=== PATIENT | female | born 1980 | race African-American/Black ===

== ENCOUNTER 2017-02-25 17:57 | Emergency (ER) | payer OTHER ==
--- NOTE | 2017-02-25 17:59 | PDOC ---
History of Present Illness - History of Present Illness Initial Comments: 02/25/17 18:04 The patient is a 36 year old female, with no significant past medical history, who presents to the emergency department with upper abdominal pain since this morning. The patient reports going out last night and having two alcoholic beverages. The patient states she rarely drinks and felt very drunk after having the two drinks. She states she ate pancakes with rodríguez before going out last night and denies eating since secondary to her abdominal pain. Secondarily , she states she is currently on her menstrual cycle. She denies chest pain, shortness of breath, headache and dizziness. She denies fever, chills, nausea, vomit, diarrhea and constipation. She denies dysuria, frequency, urgency and hematuria. Allergies: NKDA Past surgical history: cholecystectomy (5 years ago) <Ruby Vang - Last Filed: 02/25/17 20:19> <Fede Marquez - Last Filed: 02/26/17 07:18> - General Chief Complaint: Pain Stated Complaint: ABDOMINAL PAIN AND VOMITING TODAY Time Seen by Provider: 02/25/17 17:59 Past History <Ruby Vang - Last Filed: 02/25/17 20:19> - Surgical History Cholecystectomy: Yes - Immunization History Immunization Up to Date: Yes - Suicide/Smoking/Psychosocial Hx Smoking Status: No Smoking History: Never smoked Number of Cigarettes Smoked Daily: 0 Hx Alcohol Use: No Drug/Substance Use Hx: No Substance Use Type: None <Fede Marquez - Last Filed: 02/26/17 07:18> - Past Medical History Allergies/Adverse Reactions: Allergies Allergy/AdvReac Type Severity Reaction Status Date / Time No Known Allergies Allergy Verified 02/25/17 17:59 Home Medications: Ambulatory Orders Bupropion HCl [Wellbutrin -] 0 mg PO BID 04/27/15 Paroxetine HCl [Paxil -] 20 mg PO DAILY 04/27/15 Review of Systems - Review of Systems Able to Perform ROS?: Yes Comments:: 02/25/17 18:05 GENERAL/CONSTITUTIONAL: No fever or chills. No weakness. HEAD, EYES, EARS, NOSE AND THROAT: No change in vision. No ear pain or discharge. No sore throat. CARDIOVASCULAR: No chest pain or shortness of breath. RESPIRATORY: No cough, wheezing, or hemoptysis. GASTROINTESTINAL: (+) upper abdominal pain. No nausea, vomiting, diarrhea or constipation. GENITOURINARY: No dysuria, frequency, or change in urination. MUSCULOSKELETAL: No joint or muscle swelling or pain. No neck or back pain. SKIN: No rash NEUROLOGIC: No headache, vertigo, loss of consciousness, or change in strength/ sensation. ENDOCRINE: No increased thirst. No abnormal weight change. HEMATOLOGIC/LYMPHATIC: No anemia, easy bleeding, or history of blood clots. ALLERGIC/IMMUNOLOGIC: No hives or skin allergy. <Ruby Vang - Last Filed: 02/25/17 20:19> *Physical Exam - Vital Signs Last Vital Signs Temp Pulse Resp BP Pulse Ox 98.4 F 102 H 16 143/91 99 02/25/17 17:58 02/25/17 17:58 02/25/17 17:58 02/25/17 17:58 02/25/17 17:58 - Physical Exam Comments: 02/25/17 18:05 GENERAL: Awake, alert, and fully oriented, in no acute distress HEAD: No signs of trauma EYES: PERRLA, EOMI, sclera anicteric, conjunctiva clear ENT: Auricles normal inspection, hearing grossly normal, nares patent, oropharynx clear without exudates. Moist mucosa NECK: Normal ROM, supple, no lymphadenopathy, JVD, or masses LUNGS: Breath sounds equal, clear to auscultation bilaterally. No wheezes, and no crackles HEART: Regular rate and rhythm, normal S1 and S2, no murmurs, rubs or gallops ABDOMEN: Soft, nontender, normoactive bowel sounds. No guarding, no rebound. No masses EXTREMITIES: Normal range of motion, no edema. No clubbing or cyanosis. No cords, erythema, or tenderness NEUROLOGICAL: Cranial nerves II through XII grossly intact. Normal speech, normal gait SKIN: Warm, Dry, normal turgor, no rashes or lesions noted. <Ruby Vang - Last Filed: 02/25/17 20:19> ED Treatment Course - LABORATORY CBC & Chemistry Diagram: 02/25/17 18:10 02/25/17 18:10 <Ruby Vang - Last Filed: 02/25/17 20:19> - LABORATORY CBC & Chemistry Diagram: 02/25/17 18:10 02/25/17 18:10 <Fede Marquez - Last Filed: 02/26/17 07:18> *DC/Admit/Observation/Transfer - Attestations Scribe Attestion: 02/25/17 18:05 Documentation prepared by Ruby Vang, acting as biomedical engineering supervisor for Fede Marquez DO <Ruby Vang - Last Filed: 02/25/17 20:19> - Attestations Physician Attestion: 02/25/17 17:59 I, Dr. Fede Marquez, attest that this document has been prepared under my direction and personally reviewed by me in its entirety. I further attest, that it accurately reflects all work, treatment, procedures and medical decision -making performed by me. <Fede Marquez - Last Filed: 02/26/17 07:18> Diagnosis at time of Disposition: Abdominal pain Qualifiers: Abdominal location: upper abdomen, unspecified Qualified Code(s): R10.10 - Upper abdominal pain, unspecified - Discharge Dispostion Disposition: HOME Condition at time of disposition: Stable - Patient Instructions Additional Instructions: Return to the emergency department immediately with ANY new, persistent or worsening symptoms. Continue any medications as previously prescribed by your physician. You should follow up with your primary doctor as soon as possible regarding today's emergency department visit. . Please make sure your doctor reviews the results of your emergency evaluation. Thank you for coming to the Emergency Department today for your care. It was a pleasure to see you today. Please note that your evaluation is INCOMPLETE until you follow-up with your doctor.
[2017-02-25] MEDS ORDERED: SODIUM CHLORIDE 2,000 ML IV STA (18:00)
[2017-02-25] MEDS ORDERED: KETOROLAC TROMETHAMINE 30 MG/1 ML VIAL IVPUSH ONE (18:00)
[2017-02-25] MEDS ORDERED: ONDANSETRON 4 MG/2 ML VIAL IVPB ONE (18:00)
[2017-02-25] MEDS ORDERED: morphine CARPU-JECT 4 MG/1 ML DISP.SYRIN IVPUSH ONE (18:00)
[2017-02-25] MEDS ORDERED: FAMOTIDINE 20 MG/50 ML IVPB 50 ML IVPB ONE ×2 (18:00→18:18)
[2017-02-25 18:05] VITALS: TEMP 98.4; BMI 20.9
[2017-02-25] MEDS ORDERED: ONDANSETRON 4 MG/2 ML VIAL ONE (18:19)
[2017-02-25] MEDS ORDERED: morphine SULFATE 4 MG/ML VIAL ONE (18:19)
[2017-02-25 18:35] LABS: BASOPHIL 1.7 % (0-2.0); MCH 30.5 pg (25.7-33.7); MCHC 33.3 g/dl (32.0-36.0); MEAN CELL VOLUME 91.6 fl (80-96); MEAN PLT VOLUME 8.8 fl (7.5-11.1); NEUTROPHILS 84.1 % (42.8-82.8); PLATELET COUNT 306 K/MM3 (134-434); RDW 13.6 % (11.6-15.6); WHITE BLOOD COUNT 12.9 K/mm3 (4.0-10.8)
[2017-02-25 18:54] LABS: INR 1.4 (0.82-1.09); PROTHROMBIN TIME (PATIENT) 15.6 SEC (10.2-13.0)
[2017-02-25 18:59] LABS: PH,URINE >= 9.0 (4.5-8); URINE APPEARANCE Clear; URINE BILIRUBIN Negative (NEGATIVE); URINE BLOOD 1+ (NEGATIVE); URINE COLOR YELLOW; URINE GLUCOSE (UA) Negative (NEGATIVE); URINE KETONE 1+ (NEGATIVE); URINE LEUK ESTERASE Negative (NEGATIVE); URINE NITRITE Negative (NEGATIVE); URINE PROTEIN 1+ (NEGATIVE); URINE UROBILINOGEN 0.2 (0.2-1.0)
[2017-02-25 19:01] LABS: ALBUMIN 4.5 g/dl (3.5-5.0); ALK PHOS 50 U/L (32-92); AMYLASE 50 U/L (25-125); ANION GAP 10 (8-16); BILIRUBIN,TOTAL 0.8 mg/dl (0.2-1.0); CALCIUM 9.2 mg/dl (8.4-10.2); CO2 24 mmol/L (22-28); CREATININE 0.7 mg/dl (0.6-1.3); GLUCOSE,RANDOM 113 mg/dl (74-106); SGOT/AST 25 U/L (10-42); SGPT/ALT 12 U/L (10-40); TOT PROT 7.9 g/dl (6.4-8.3)
[2017-02-25] MEDS ORDERED: KETOROLAC TROMETHAMINE 30 MG/1 ML VIAL ONE (19:01)
[2017-02-25 19:13] VITALS: BP 135/72; PULSE 58
[2017-02-25 19:51] LABS: URINE MUCUS 1+
--- NOTE | 2017-02-25 20:20 | PDOC ---
*Physical Exam - Vital Signs Last Vital Signs Temp Pulse Resp BP Pulse Ox 98.4 F 58 L 16 135/72 100 02/25/17 17:58 02/25/17 19:06 02/25/17 19:06 02/25/17 19:06 02/25/17 19:06 <Ruby Vang - Last Filed: 02/25/17 20:21> - Vital Signs Last Vital Signs Temp Pulse Resp BP Pulse Ox 98.4 F 58 L 16 135/72 100 02/25/17 17:58 02/25/17 19:06 02/25/17 19:06 02/25/17 19:06 02/25/17 19:06 <Sophia Jackson I - Last Filed: 02/25/17 20:55> ED Treatment Course - LABORATORY CBC & Chemistry Diagram: 02/25/17 18:10 02/25/17 18:10 - ADDITIONAL ORDERS Additional order review: Laboratory Results 02/25/17 02/25/17 02/25/17 18:40 18:10 18:10 PT with INR INR Sodium Potassium Chloride Carbon Dioxide Anion Gap BUN Creatinine Creat Clearance w eGFR Random Glucose Calcium Total Bilirubin Direct Bilirubin AST ALT Alkaline Phosphatase Total Protein Albumin Total Amylase Lipase Serum , Qual Negative Urine Color Yellow Urine Appearance Clear Urine pH >= 9.0 H Ur Specific [place] 1.015 Urine Protein 1+ H Urine Glucose (UA) Negative Urine Ketones 1+ H Urine Blood 1+ H Urine Nitrite Negative Urine Bilirubin Negative Urine Urobilinogen 0.2 Ur Leukocyte Esterase Negative Urine RBC 4-6 Urine WBC 3-5 Ur Epithelial Cells 3-5 Urine Mucus 1+ Blood Type Cancelled Antibody Screen Cancelled Spec Expiration Date Cancelled 02/25/17 02/25/17 18:10 18:10 PT with INR 15.6 H INR 1.40 H Sodium 142 Potassium 3.4 L Chloride 108 H Carbon Dioxide 24 Anion Gap 10 BUN 9 Creatinine 0.7 Creat Clearance w eGFR > 60 Random Glucose 113 H Calcium 9.2 Total Bilirubin 0.8 Direct Bilirubin Y AST 25 ALT 12 Alkaline Phosphatase 50 Total Protein 7.9 Albumin 4.5 Total Amylase 50 Lipase < 20 L Serum , Qual Urine Color Urine Appearance Urine pH Ur Specific [place] Urine Protein Urine Glucose (UA) Urine Ketones Urine Blood Urine Nitrite Urine Bilirubin Urine Urobilinogen Ur Leukocyte Esterase Urine RBC Urine WBC Ur Epithelial Cells Urine Mucus Blood Type Antibody Screen Spec Expiration Date 02/25/17 18:10 RBC 4.09 MCV 91.6 MCHC 33.3 RDW 13.6 MPV 8.8 Neutrophils % 84.1 H Lymphocytes % 6.8 L Monocytes % 7.4 Eosinophils % 0.0 Basophils % 1.7 - RADIOLOGY Radiograph Interpretation: EXAM: CT abdomen and pelvis with contrast FINDINGS: Visualized lung bases are unremarkable. No pleural effusions. Cholecystectomy. *Nonspecific mild periportal edema. Correlate clinically for possible hepatitis. *Pancreas appears normal without inflammatory changes or surrounding abscess. Adrenal glands and spleen are unremarkable. No renal or urinary calculi. No AAA. *Most of the colon is decompressed. Appearance of diffuse mucosal thickening throughout colon is more likely due to the underdistention, though cannot exclude colitis. No evidence for diverticulitis, appendicitis, small bowel obstruction, or free air. Trace pelvic fluid. Gorge Hall MD 02/25/2017 20:12 EST - Medications Given in the ED: ED Medications Discontinued Medications Generic Name Dose Route Start Last Admin Trade Name Freq PRN Reason Stop Dose Admin Famotidine/Sodium Chloride 50 mls @ 100 mls/hr 02/25/17 18:00 02/25/17 18:29 Pepcid 20 Mg Premixed Ivpb - IVPB 02/25/17 18:29 100 mls/hr ONCE ONE Administration Sodium Chloride 2,000 mls @ 1,000 mls/hr 02/25/17 18:00 02/25/17 18:28 Normal Saline - IV 02/25/17 19:59 1,000 mls/hr ASDIR STA Administration Ketorolac Tromethamine 30 mg 02/25/17 18:00 02/25/17 19:06 Toradol Injection - IVPUSH 02/25/17 18:01 30 mg ONCE ONE Administration Morphine Sulfate 4 mg 02/25/17 18:00 02/25/17 18:30 Morphine Injection - IVPUSH 02/25/17 18:01 4 mg ONCE ONE Administration Ondansetron HCl 8 mg 02/25/17 18:00 02/25/17 18:30 Zofran Injection IVPB 02/25/17 18:01 8 mg ONCE ONE Administration <Ruby Vang - Last Filed: 02/25/17 20:21> - LABORATORY CBC & Chemistry Diagram: 02/25/17 18:10 02/25/17 18:10 - ADDITIONAL ORDERS Additional order review: Laboratory Results 02/25/17 02/25/17 02/25/17 18:40 18:10 18:10 PT with INR INR Sodium Potassium Chloride Carbon Dioxide Anion Gap BUN Creatinine Creat Clearance w eGFR Random Glucose Calcium Total Bilirubin Direct Bilirubin AST ALT Alkaline Phosphatase Total Protein Albumin Total Amylase Lipase Serum , Qual Negative Urine Color Yellow Urine Appearance Clear Urine pH >= 9.0 H Ur Specific [place] 1.015 Urine Protein 1+ H Urine Glucose (UA) Negative Urine Ketones 1+ H Urine Blood 1+ H Urine Nitrite Negative Urine Bilirubin Negative Urine Urobilinogen 0.2 Ur Leukocyte Esterase Negative Urine RBC 4-6 Urine WBC 3-5 Ur Epithelial Cells 3-5 Urine Mucus 1+ Blood Type Cancelled Antibody Screen Cancelled Spec Expiration Date Cancelled 02/25/17 02/25/17 18:10 18:10 PT with INR 15.6 H INR 1.40 H Sodium 142 Potassium 3.4 L Chloride 108 H Carbon Dioxide 24 Anion Gap 10 BUN 9 Creatinine 0.7 Creat Clearance w eGFR > 60 Random Glucose 113 H Calcium 9.2 Total Bilirubin 0.8 Direct Bilirubin Y AST 25 ALT 12 Alkaline Phosphatase 50 Total Protein 7.9 Albumin 4.5 Total Amylase 50 Lipase < 20 L Serum , Qual Urine Color Urine Appearance Urine pH Ur Specific [place] Urine Protein Urine Glucose (UA) Urine Ketones Urine Blood Urine Nitrite Urine Bilirubin Urine Urobilinogen Ur Leukocyte Esterase Urine RBC Urine WBC Ur Epithelial Cells Urine Mucus Blood Type Antibody Screen Spec Expiration Date 02/25/17 18:10 RBC 4.09 MCV 91.6 MCHC 33.3 RDW 13.6 MPV 8.8 Neutrophils % 84.1 H Lymphocytes % 6.8 L Monocytes % 7.4 Eosinophils % 0.0 Basophils % 1.7 - Medications Given in the ED: ED Medications Discontinued Medications Generic Name Dose Route Start Last Admin Trade Name Freq PRN Reason Stop Dose Admin Famotidine/Sodium Chloride 50 mls @ 100 mls/hr 02/25/17 18:00 02/25/17 18:29 Pepcid 20 Mg Premixed Ivpb - IVPB 02/25/17 18:29 100 mls/hr ONCE ONE Administration Sodium Chloride 2,000 mls @ 1,000 mls/hr 02/25/17 18:00 02/25/17 18:28 Normal Saline - IV 02/25/17 19:59 1,000 mls/hr ASDIR STA Administration Ketorolac Tromethamine 30 mg 02/25/17 18:00 02/25/17 19:06 Toradol Injection - IVPUSH 02/25/17 18:01 30 mg ONCE ONE Administration Morphine Sulfate 4 mg 02/25/17 18:00 02/25/17 18:30 Morphine Injection - IVPUSH 02/25/17 18:01 4 mg ONCE ONE Administration Ondansetron HCl 8 mg 02/25/17 18:00 02/25/17 18:30 Zofran Injection IVPB 02/25/17 18:01 8 mg ONCE ONE Administration <Sophia Jackson I - Last Filed: 02/25/17 20:55> Progress Note - Progress Note Progress Note: Care of this patient was transferred to [place] from Dr. Garnett at 1900 hrs. Patient is a 36-year-old female with history of pancreatitis in the past who was drinking this past weekend and comes in complaining of upper abdominal pain. Patient has a workup pending Including labs and a CAT scan. 20:30 Patient's CAT scan was unremarkable with the exception of some nonspecific mild andrew-portal edema. Otherwise some evidence of some mild colitis. Patient had a mildly elevated white count of 12.8 but otherwise no acute pancreatitis, appendicitis or acute abdominal pathology. Patient's symptoms are most likely secondary to a viral etiology.. Patient was told to follow-up with her primary care next week if symptoms have not improved and she was discharged home. <Sophia Jackson I - Last Filed: 02/25/17 20:55> *DC/Admit/Observation/Transfer - Attestations Scribe Attestion: 02/25/17 20:21 Documentation prepared by Ruby Vang, acting as certified medical records coder for Sophia Jackson MD <Ruby Vang - Last Filed: 02/25/17 20:21> <Sophia Jackson I - Last Filed: 02/25/17 20:55> Diagnosis at time of Disposition: Abdominal pain Qualifiers: Abdominal location: upper abdomen, unspecified Qualified Code(s): R10.10 - Upper abdominal pain, unspecified - Discharge Dispostion Disposition: HOME Condition at time of disposition: Stable - Patient Instructions Additional Instructions: Return to the emergency department immediately with ANY new, persistent or worsening symptoms. Continue any medications as previously prescribed by your physician. You should follow up with your primary doctor as soon as possible regarding today's emergency department visit. . Please make sure your doctor reviews the results of your emergency evaluation. Thank you for coming to the Emergency Department today for your care. It was a pleasure to see you today. Please note that your evaluation is INCOMPLETE until you follow-up with your doctor.
== END 2017-02-25 20:54 | disposition home or self-care (01) ==
LOC: FER 17:57
PROC: 3E033GC Introduction of Other Therapeutic Substance into Peripheral Vein, Percutaneous Approach (ICD-10-PCS; principal; 2017-02-25)
PROC: 3E0333Z Introduction of Anti-inflammatory into Peripheral Vein, Percutaneous Approach (ICD-10-PCS; 2017-02-25)
PROC: 3E033NZ Introduction of Analgesics, Hypnotics, Sedatives into Peripheral Vein, Percutaneous Approach (ICD-10-PCS; 2017-02-25)
PROC: 3E0337Z Introduction of Electrolytic and Water Balance Substance into Peripheral Vein, Percutaneous Approach (ICD-10-PCS; 2017-02-25)
DX: R10.10 Upper abdominal pain, unspecified (principal)
CPT/HCPCS: 36415; 74177-TC; 80053; 80076; 81003; 81015; 82150; 83690; 84703; 85025; 85610; 86850; 86900; 86901; 87086; 99283-25

== ENCOUNTER 2020-12-19 04:39 | Emergency (ER) | payer OTHER ==
[2020-12-19 05:08] VITALS: TEMP 98.8; BMI 20.7
[2020-12-19 06:20] LABS: BASO % 0.6 % (0-2.0); EOS % 0.1 % (0-4.5); HEMATOCRIT 35.4 % (32.4-45.2); HEMOGLOBIN 12.1 GM/dL (10.7-15.3); MCH 31.4 pg (25.7-33.7); MCHC 34.3 g/dl (32.0-36.0); MEAN CELL VOLUME 91.7 fl (80-96); MEAN PLT VOLUME 7.9 fl (7.5-11.1); MONO % 11.4 % (3.8-10.2); NEUT % 78.9 % (42.8-82.8); PLATELET COUNT 221 10^3/uL (134-434); RBC 3.86 M/mm3 (3.60-5.2); RDW 14.2 % (11.6-15.6); WHITE BLOOD COUNT 11.8 K/mm3 (4.0-10.0)
[2020-12-19 06:27] LABS: CALCIUM 8.8 mg/dL (8.5-10.1)
[2020-12-19 06:28] LABS: ALBUMIN 3.7 g/dl (3.4-5.0); BLOOD UREA NITROGEN 5.7 mg/dL (7-18)
[2020-12-19 06:31] LABS: CREATININE 0.8 mg/dL (0.55-1.3)
[2020-12-19 06:32] LABS: BILIRUBIN,TOTAL 0.2 mg/dL (0.2-1); TOT PROT 7.5 g/dl (6.4-8.2)
[2020-12-19] MEDS ORDERED: ACETAMINOPHEN 1000 MG/100 ML VIAL (NON FORMULARY) IVPB ONE (06:40)
[2020-12-19] MEDS ORDERED: SODIUM CHLORIDE 0.9% 500 ML INFUS.BAG IV ONE (06:40)
[2020-12-19] MEDS ORDERED: ACETAMINOPHEN INJECTION 100 ML IVPB ONE (06:42)
[2020-12-19 07:23] LABS: INR 1.33 (0.83-1.09)
[2020-12-19 07:26] LABS: ACTIVATED PTT 32.4 SECONDS (25.2-36.5)
[2020-12-19] MEDS ORDERED: LIDOCAINE HCL 2% (20ML MULTI-DOSE VIAL) ONE (10:39)
[2020-12-19] MEDS ORDERED: IBUPROFEN 600 MG TABLET (FP) PO ONE ×2 (10:59→11:09)
[2020-12-19] MEDS ORDERED: SULFAMETHOXAZOLE/TRIMETHOPRIM 800MG/160MG D.S. TABLET PO ONE (10:59)
[2020-12-19] MEDS ORDERED: CEPHALEXIN MONOHYDRATE 500 MG CAPSULE (UD) PO ONE (10:59)
[2020-12-19] MEDS ORDERED: CEPHALEXIN MONOHYDRATE 500 MG CAPSULE (UD) ONE (11:09)
[2020-12-19] MEDS ORDERED: SULFAMETHOXAZOLE/TRIMETHOPRIM 800MG/160MG D.S. TABLET ONE (11:10)
[2020-12-19 11:30] VITALS: BP 114/71; PULSE 89
== END 2020-12-19 11:28 | disposition home or self-care (01) ==
LOC: JER 04:39
PROC: 0H98XZZ Drainage of Buttock Skin, External Approach (ICD-10-PCS; principal; 2020-12-19)
DX: L02.31 Cutaneous abscess of buttock (principal)
CPT/HCPCS: 36415; 74177-TC; 80053; 84703; 85025; 85610; 85730; 86850; 86900; 86901; 87070; 87076; 87205; 99285-25; J0131; Q9967